=== PATIENT | male | born 2000 | race Hispanic/Latino ===

== ENCOUNTER 2021-07-24 07:56 | Emergency (ER) | payer MEDICAID ==
[~2021-07-24] VITALS: Ht 162.6 cm; Wt 76.2 kg
[2021-07-24 07:58] VITALS: BP 111/66
[2021-07-24] MEDS ORDERED: ONDANSETRON 4MG INJ IVP ONE (08:30)
[2021-07-24] MEDS ORDERED: MORPHINE 4 MG SYG IVP ONE (08:30)
[2021-07-24] MEDS ORDERED: ACETAMINOPHEN 500 MG TABLET PO ONE (08:30)
[2021-07-24 08:34] LABS: BASOPHILS % (AUTO) 0.7 % (0.0-5.0); EOSINOPHILS % (AUTO) 3.5 % (0.0-8.0); HEMATOCRIT 42.7 % (42-54); LYMPHOCYTES % (AUTO) 39.2 % (21.0-51.0); MEAN CORPUSCULAR HEMOGLOBIN 30.3 pg (27.0-33.0); MEAN CORPUSCULAR HGB CONC 35.1 g/dL (32.0-36.0); MEAN CORPUSCULAR VOLUME 86.3 fL (79-99); MONOCYTES % (AUTO) 8.2 % (3.0-13.0); NEUTROPHILS % (AUTO) 48.3 % (40.0-77.0); PLATELET COUNT (AUTO) 201 K/uL (130-400); RED BLOOD CELL COUNT(AUTO) 4.95 MIL/uL (4.50-6.20); RED CELL DISTRIBUTION WIDTH 11.8 % (11.0-15.5); WHITE BLOOD COUNT (AUTO) 7.4 K/uL (4.8-10.8)
[2021-07-24 08:46] LABS: CREATININE 0.8 mg/dL (0.5-1.5); INR 1.07 (0.85-1.15); POTASSIUM 3.1 mmol/L (3.5-5.1); PROTHROMBIN TIME 11.6 SEC (9.6-11.6)
[2021-07-24 08:50] LABS: ALBUMIN 4.1 g/dL (3.5-5.0); BILIRUBIN,TOTAL 0.4 mg/dL (0.2-1.0); TOTAL PROTEIN, SERUM 7.4 g/dL (6.0-8.3)
[2021-07-24 09:15] LABS: PARTIAL THROMBOPLASTIN TIME 20.1 SEC (26.3-35.5)
== END 2021-07-24 09:36 | disposition home or self-care (01) ==
LOC: EDH 07:56
DX: D66 Hereditary factor VIII deficiency (principal); M25.521 Pain in right elbow
CPT/HCPCS: 36415; 80053; 85025; 85240; 85610; 85730; 96374; 96375; 99284; J2270; J2405

== ENCOUNTER 2021-07-26 22:17 | Emergency (ER) | payer MEDICAID ==
[~2021-07-26] VITALS: Ht 162.6 cm; Wt 78.5 kg
[2021-07-26 22:43] LABS: BASOPHILS % (AUTO) 0.3 % (0.0-5.0); EOSINOPHILS % (AUTO) 1.7 % (0.0-8.0); HEMATOCRIT 44.7 % (42-54); LYMPHOCYTES % (AUTO) 10.1 % (21.0-51.0); MEAN CORPUSCULAR HEMOGLOBIN 31.3 pg (27.0-33.0); MEAN CORPUSCULAR HGB CONC 36.7 g/dL (32.0-36.0); MEAN CORPUSCULAR VOLUME 85.3 fL (79-99); MONOCYTES % (AUTO) 6.5 % (3.0-13.0); NEUTROPHILS % (AUTO) 81.2 % (40.0-77.0); PLATELET COUNT (AUTO) 207 K/uL (130-400); RED BLOOD CELL COUNT(AUTO) 5.24 MIL/uL (4.50-6.20); RED CELL DISTRIBUTION WIDTH 11.7 % (11.0-15.5); WHITE BLOOD COUNT (AUTO) 11.7 K/uL (4.8-10.8)
[2021-07-26 22:49] LABS: APPEARANCE,URINE Clear (CLEAR); BILIRUBIN,URINE Negative (NEGATIVE); COLOR,URINE Yellow (YELLOW); GLUCOSE, URINE (UA) Negative (NEGATIVE); KETONES,URINE 15 mg/dL (NEGATIVE); LEUKOCYTE ESTERASE ,URINE Negative (NEGATIVE); NITRATE,URINE Negative (NEGATIVE); OCCULT BLOOD,URINE Negative (NEGATIVE); PROTEIN,URINE Trace mg/dL (NEGATIVE)
[2021-07-26 22:55] LABS: CREATININE 0.7 mg/dL (0.5-1.5); POTASSIUM 3.7 mmol/L (3.5-5.1)
[2021-07-26 22:57] LABS: AMPHET/METH SCREEN,URINE NEGATIVE (NEGATIVE); BARBITURATE SCREEN, URINE NEGATIVE (NEGATIVE); BENZODIAZEPINES SCREEN,URINE NEGATIVE (NEGATIVE); CANNABINOID SCREEN,URINE POSITIVE (NEGATIVE); COCAINE SCREEN,URINE NEGATIVE (NEGATIVE); OPIATE SCREEN,URINE NEGATIVE (NEGATIVE); PHENCYCLIDINE SCREEN,URINE NEGATIVE (NEGATIVE)
[2021-07-26 22:59] LABS: ALBUMIN 4.4 g/dL (3.5-5.0); BILIRUBIN,TOTAL 0.9 mg/dL (0.2-1.0)
[2021-07-26] MEDS ORDERED: ONDANSETRON 4MG INJ IVP ONE (23:00)
[2021-07-26] MEDS ORDERED: 0.9%NACL 1000ML 1,000 ML IV ONE (23:00)
[2021-07-26] MEDS ORDERED: MORPHINE 4 MG SYG IVP ONE (23:00)
[2021-07-27] MEDS ORDERED: KETOROLAC 30MG VIAL (30MG/ML) IVP ONE
[2021-07-27] MEDS ORDERED: MORPHINE 4 MG SYG ONE (02:18)
[2021-07-27] MEDS ORDERED: ONDANSETRON 4MG INJ ONE (02:18)
[2021-07-27] MEDS ORDERED: MORPHINE 4 MG SYG IVP ONE (02:30)
[2021-07-27] MEDS ORDERED: ONDANSETRON 4MG INJ IVP ONE (02:30)
[2021-07-27] MEDS ORDERED: HYOS0.124 SL (02:38)
[2021-07-27] MEDS ORDERED: ONDA4TAB10 PO (02:38)
[2021-07-27 02:41] VITALS: BP 116/63
== END 2021-07-27 02:51 | disposition home or self-care (01) ==
LOC: EDH 22:17
DX: K52.9 Noninfective gastroenteritis and colitis, unspecified (principal); F12.90 Cannabis use, unspecified, uncomplicated; Z79.1 Long term (current) use of non-steroidal anti-inflammatories (NSAID)
CPT/HCPCS: 36415; 76705; 80053; 80305; 81003; 83690; 85025; 96361; 96374; 96375; 96376; 99285; J1885; J2270 ×2; J2405 ×2

== ENCOUNTER 2022-05-30 01:43 | Emergency (ER) | payer MEDICAID ==
[~2022-05-30] VITALS: Ht 165.1 cm; Wt 83.9 kg
[~2022-05-30 01:43] MED LIST: HYOS0.124 SL; ONDA4TAB10 PO
[2022-05-30 02:14] LABS: BASOPHILS % (AUTO) 0.4 % (0.0-5.0); LYMPHOCYTES % (AUTO) 28.9 % (21.0-51.0); MEAN CORPUSCULAR HEMOGLOBIN 30.3 pg (27.0-33.0); MEAN CORPUSCULAR VOLUME 86.6 fL (79-99); MONOCYTES % (AUTO) 7.3 % (3.0-13.0); NEUTROPHILS % (AUTO) 61.2 % (40.0-77.0); PLATELET COUNT (AUTO) 251 K/uL (130-400); RED BLOOD CELL COUNT(AUTO) 5.31 MIL/uL (4.50-6.20); RED CELL DISTRIBUTION WIDTH 11.9 % (11.0-15.5); WHITE BLOOD COUNT (AUTO) 12.3 K/uL (4.8-10.8)
[2022-05-30 02:22] LABS: CREATININE 0.9 mg/dL (0.5-1.5); POTASSIUM 3.9 mmol/L (3.5-5.1)
[2022-05-30 02:24] LABS: INR 1.05 (0.85-1.15); PROTHROMBIN TIME 11.4 SEC (9.6-11.6)
[2022-05-30 02:27] LABS: ALBUMIN 4.5 g/dL (3.5-5.0); TOTAL PROTEIN, SERUM 8.1 g/dL (6.0-8.3)
[2022-05-30] MEDS ORDERED: MORPHINE 4 MG SYG IVP ONE (02:30)
[2022-05-30] MEDS ORDERED: ONDANSETRON 4MG INJ IVP ONE (02:30)
[2022-05-30 03:00] LABS: PARTIAL THROMBOPLASTIN TIME 19.4 SEC (26.3-35.5)
[2022-05-30] MEDS ORDERED: MORPHINE 2 MG SYG IVP ONE ×2 (03:00→03:30)
[2022-05-30] MEDS ORDERED: IOHEXOL 350 MG/ML 100ML INFUS..BTL IV ONE (04:32)
[2022-05-30] MEDS ORDERED: ACETAMINOPHEN 500 MG TABLET ONE (09:49)
[2022-05-30] MEDS ORDERED: ACETAMINOPHEN 500 MG TABLET PO ONE (10:00)
[2022-05-30 10:20] VITALS: BP 121/69
== END 2022-05-30 10:18 | disposition home or self-care (01) ==
LOC: EDH 01:43
DX: S39.012A Strain of muscle, fascia and tendon of lower back, initial encounter (principal); D66 Hereditary factor VIII deficiency; F17.200 Nicotine dependence, unspecified, uncomplicated; Z91.040 Latex allergy status; Z98.890 Other specified postprocedural states; X58.XXXA Exposure to other specified factors, initial encounter; Y93.89 Activity, other specified; Y92.89 Other specified places as the place of occurrence of the external cause; Y99.8 Other external cause status
CPT/HCPCS: 99285; 72158; 96374; 72133; 96375; 80053; 85025; 85610; 85730; 36415; 96376; J2405; J2270; Q9967